=== PATIENT | male | born 1980 | race Caucasian/White ===

== ENCOUNTER 2020-05-26 09:42 | Outpatient (REF) | payer BC, SELFPAY | END 2020-05-26 09:43 | disposition home or self-care (01) | LOC: HO.LAB 09:42 | PROVIDERS: Visit Provider Internal Medicine | DX: Z20.822 Contact with and (suspected) exposure to COVID-19 (principal) | CPT/HCPCS: 36415; C9803; U0003 ==

== ENCOUNTER 2021-02-23 13:46 | Outpatient (REF) | payer BC, SELFPAY ==
[2021-02-23 14:45] LABS: Influenza A PCR NEGATIVE (Negative); Influenza B PCR NEGATIVE (Negative); Resp Syncy Virus RNA Qual PCR NEGATIVE (Negative); SARS COV2 PCR INHOUSE NEGATIVE (Negative)
== END 2021-02-23 13:47 | disposition home or self-care (01) ==
LOC: HO.LNP 13:46
PROVIDERS: Visit Provider Physician Assistant Medical
DX: Z20.822 Contact with and (suspected) exposure to COVID-19 (principal); J06.9 Acute upper respiratory infection, unspecified
CPT/HCPCS: 0241U

== ENCOUNTER 2021-05-04 10:39 | Outpatient (REF) | payer BC, SELFPAY ==
[2021-05-04 14:49] LABS: Hematocrit 47.7 % (42.0-52.0); Hemoglobin 15.1 g/dl (14.0-18.0); Mean Corpuscular HGB Conc 31.7 g/dl (31.0-36.0); Mean Corpuscular Hemoglobin 26.2 pg (27.0-33.0); Mean Corpuscular Volume 82.8 fL (80.0-98.0); Mean Platelet Volume 9.7 fL (9.4-12.4); Platelet Count 224 X10*3/uL (160-400); Red Blood Count 5.76 X10*6/uL (4.60-5.80); Red Cell Distribution Width 12.9 % (11.0-16.0); White Blood Count 7.8 X10*3/uL (4.8-10.8)
[2021-05-04 15:04] LABS: Alanine Aminotransferase 43 U/L (0-40); Albumin Level 4.3 g/dL (3.5-5.0); Alkaline Phosphatase 67 U/L (39-117); Anion Gap 11 (12-20); Aspartate Amino Transferase 23 U/L (5-37); Bilirubin Total 0.7 mg/dL (0.0-1.0); Blood Urea Nitrogen 12 mg/dL (9-16); Calcium 9.6 mg/dL (8.4-10.2); Carbon Dioxide 28 mmol/L (22-29); Chloride 108 mmol/L (96-108); Cholesterol 244 mg/dL; Estimated Glomerular Filt Rate > 60; Glucose Random 82 mg/dL (60-115); HDL Cholesterol 53 mg/dL; LDL Cholesterol Calculated 158 mg/dl; Potassium 4.7 mmol/L (3.3-5.1); Sodium 142 mmol/L (135-145); Total Protein 6.9 g/dL (6.5-8.0); Triglycerides 168 mg/dL
== END 2021-05-04 10:40 | disposition home or self-care (01) ==
LOC: HO.HMGCLDS 10:39
PROVIDERS: PCP Internal Medicine; Visit Provider Internal Medicine
DX: Z00.00 Encounter for general adult medical examination without abnormal findings (principal); D23.9 Other benign neoplasm of skin, unspecified; J31.0 Chronic rhinitis; E78.5 Hyperlipidemia, unspecified
CPT/HCPCS: 36415; 80053; 80061; 85027

== ENCOUNTER 2021-05-15 09:40 | Outpatient (REF) | payer BC, SELFPAY ==
[2021-05-15 09:55] LABS: Binax Now Covid-19 Ag Positive (Negative)
[2021-05-15 09:56] LABS: Binax Internal Control QC Valid; Binax Performed by: HO.BONILM
== END 2021-05-15 09:41 | disposition home or self-care (01) ==
LOC: HO.HMGCLDS 09:40
PROVIDERS: Visit Provider Internal Medicine
DX: J06.9 Acute upper respiratory infection, unspecified (principal); Z20.822 Contact with and (suspected) exposure to COVID-19
CPT/HCPCS: 36415

== ENCOUNTER 2022-02-28 10:47 | Emergency (ER) | payer BC, SELFPAY ==
--- NOTE | ~2022-02-28 | CT_ITS ---
EXAMINATION: CT ABDOMEN AND PELVIS WITHOUT CONTRAST CLINICAL INFORMATION: Left flank pain and hematuria COMPARISON: None TECHNIQUE: Multidetector volumetric imaging was performed from the superior aspect of the liver through the pubic symphysis. Sagittal and coronal reformatted images were obtained on the technologist's workstation. This CT examination was performed using dose optimization techniques as appropriate, variously including the following: *Automated exposure control *Adjustment of mA and/or kV according to patient size (this includes techniques or standardized protocols for targeted exams where dose is matched to indication/reason for exam; i.e. extremities or head) *Use of iterative reconstruction technique DLP: 935 mGy-cm FINDINGS: LUNG BASES: The visualized lung bases are unremarkable aside from the presence of lingular atelectasis. LIVER, GALLBLADDER, AND BILIARY TREE: The liver is normal in size, shape, and attenuation. No focal hepatic lesion or biliary ductal dilatation is present. The gallbladder is significantly contracted but otherwise unremarkable with no evidence of radiopaque gallstones, gallbladder wall thickening, or obvious pericholecystic inflammatory changes. PANCREAS: Unremarkable. SPLEEN: Unremarkable. ADRENAL GLANDS: Unremarkable. There is a tiny fatty lesion seen in the left adrenal gland measuring only a few millimeters in size of no significance. KIDNEYS AND URETERS: There is a 3 mm obstructing stone present at the left ureteropelvic junction with associated mild hydronephrosis and some minimal perinephric stranding. No left-sided renal masses are seen. No intrarenal calcifications are noted. The right kidney and ureter are totally normal. BLADDER: Unremarkable. GASTROINTESTINAL TRACT: The small and large bowel are unremarkable aside from a few scattered colonic diverticula without diverticulitis. The appendix is unremarkable. ABDOMINAL WALL: No significant hernia is appreciated. LYMPH NODES: There are some para-aortic lymph nodes present that are completely replaced with fat. No retroperitoneal lymphadenopathy VASCULAR: Unremarkable. PELVIC VISCERA: There is mild BPH. Normal-appearing seminal vesicles OSSEOUS STRUCTURES: Degenerative changes noted in the spine most marked from L4 through S1 CT/CT abdomen pelvis wo IV con IMPRESSION: 3 mm obstructing left ureteropelvic junction calculus. Fleischner guidelines were followed.
[2022-02-28 11:42] VITALS: BP 120/72; PULSE 85; RESP 16; TEMP 36.6; O2SAT 100; BMI 32.3
[2022-02-28 12:13] LABS: Appearance Urine Turbid; Color Urine Dark Yellow; Glucose Urine UA Negative (Negative); Leukocyte Esterase Urine Small (1+) (Negative); Nitrite Urine Negative (Negative); UMIC TRIGGER UACC YES; Urine Blood Large (3+) (Negative); Urine Ketones Negative (Negative); Urine Protein 100 (2+) mg/dL (Neg-Trace)
[2022-02-28 12:18] LABS: Bacteria Urine None Seen (None Seen); RBC Urine >20 /HPF (0-2); Squamous Epithelial Cell Urine 0-2 /HPF (0-2); UACC Culture Trigger YES
[2022-02-28 13:16] LABS: MANUAL DIFF FLAG NO
[2022-02-28 13:18] LABS: Basophils Percent Auto 0.5 % (0-2); Eosinophils Absolute Auto 0.3 X10*3/uL (0.0-0.4); Eosinophils Percent Auto 3.9 % (0-4); Hematocrit 48.3 % (42.0-52.0); Hemoglobin 15.4 g/dl (14.0-18.0); Imm Gran Abs Auto 0.03 X10*3/uL (0.00-0.03); Imm Gran Pct Auto 0.3 % (0.0-0.4); Lymphocytes Absolute Auto 2.1 X10*3/uL (1.2-4.9); Lymphocytes Percent Auto 24.8 % (20-40); Mean Corpuscular HGB Conc 31.9 g/dl (31.0-36.0); Mean Corpuscular Volume 81.6 fL (80.0-98.0); Mean Platelet Volume 9.1 fL (9.4-12.4); Monocytes Absolute Auto 0.7 X10*3/uL (0.1-1.2); Monocytes Percent Auto 7.9 % (2-11); Neutrophils Absolute Auto 5.4 x10*3/uL (2.0-8.3); Neutrophils Percent Auto 62.6 % (45-73); Platelet Count 202 X10*3/uL (160-400); Red Blood Count 5.92 X10*6/uL (4.60-5.80); Red Cell Distribution Width 12.9 % (11.0-16.0); White Blood Count 8.6 X10*3/uL (4.8-10.8)
[2022-02-28 13:33] LABS: Anion Gap 14 (12-20); Blood Urea Nitrogen 19 mg/dL (9-16); Calcium 9.7 mg/dL (8.4-10.2); Carbon Dioxide 26 mmol/L (22-29); Chloride 106 mmol/L (96-108); Creatinine Clr Calc Pharmacy 136.5; Estimated Glomerular Filt Rate > 60; Glucose Random 88 mg/dL (60-115); Potassium 4.5 mmol/L (3.3-5.1); Sodium 141 mmol/L (135-145)
--- NOTE | 2022-02-28 18:07 | ED_ITS ---
HPI - Abdominal Pain General Chief Complaint: Abdominal Pain Stated Complaint: kidney stones Time Seen by Provider: 02/28/22 17:30 Source: patient Mode of arrival: ambulatory Limitations: no limitations History of Present Illness HPI narrative: Patient is a 41-year-old male who presents to the emergency department for evaluation of left flank pain. Onset was this morning. Pain has been intermittent. It is described as aching, stabbing pains. Reports that it feels similar to kidney stones that he has had in the past, which he was able to pass on his own. Denies fevers, chills, chest pain, shortness of breath, nausea, vomiting, dysuria, urinary frequency, hematuria. He has not yet taken any medications for this today. Related Data Previous Rx's Medication Instructions Recorded fluticasone propionate 50 2 spray intranasal DAILY #16 grams 03/01/21 mcg/actuation nasal spray,suspension (Flonase Allergy Relief) azelastine-fluticasone 137 mcg-50 1 spray intranasal BID #23 grams 06/15/21 mcg/spray nasal spray meloxicam 15 mg tablet 15 mg PO DAILY #10 tabs 11/03/21 naproxen 500 mg tablet 500 mg PO BID pain #14 tabs 02/28/22 prednisone 20 mg tablet 40 mg PO DAILY 5 days #10 tabs 02/28/22 tamsulosin 0.4 mg capsule 0.4 mg PO BEDTIME #10 caps 02/28/22 Allergies Allergy/AdvReac Type Severity Reaction Status Date / Time No Known Allergies Allergy Verified 02/28/22 11:44 Review of Systems Review of Systems Constitutional : No Weight loss, No Fever, No Chills ENT/Mouth :? No sore throat, No Rhinorrhea Eyes: No Swelling, No Redness Cardiovascular : No Chest Pain, No SOB, No Edema Respiratory : No Cough, No Sputum, No Wheezing Gastrointestinal : No Nausea, no Vomiting, no Diarrhea, positive abdominal pain, No Hematochezia, No Melena Genitourinary : No Dysuria, No Urinary Frequency, No Hematuria, No Urgency? Musculoskeletal : No joint pain, No Myalgias, No Joint Swelling Skin : No Skin Lesions, No rash Neuro : No Weakness, No Numbness, No Dizziness, No Headache Psych : No Anxiety/Panic, No Depression Heme/Lymph: No Bruising, No Lymphadenopathy Endocrine : No Polyuria, No Polydipsia Yes all other systems are reviewed and are negative [facility] Past Medical History Attestation statement: The following information was validated with the patient. Source: old records reviewed Medical History Annual physical exam Chronic rhinitis Dysplastic nevi History of herniated intervertebral disc Hyperlipidemia Nephrolithiasis Surgical History Hx of lumbar discectomy Hx of nasal polypectomy Hx of vasectomy Family History Family History Father Diabetes Hypertension Heart attack Mother Hypertension Social History Social History Housing: House Patient Tobacco Use Status: Never used Tobacco e-Cigarette/Vaping Use: Never Used Advance Directives: No Advance Directives Information Provided: No Current occupational status: employed Physical Exam ED Vital Signs: Vital Signs - 24 hr 02/28/22 11:42 Temperature 98 F Pulse Rate 85 Respiratory Rate 16 Blood Pressure 120/72 Pulse Oximetry 100 Oxygen Delivery Method Room Air BMI result Body Mass Index 32.3 Vital signs have been reviewed as normal and appeared to be correct. Blood pressure normal.? Heart rate normal.? Respiration rate normal. Temperature normal.? Oxygen saturation normal. Appearance: Alert.?Oriented to person, place and time. No acute distress.?Normal affect. Eyes: Pupils equal, round and reactive to light.? ENT: Pharynx normal.?? Neck: Normal inspection.? Neck supple.?? CVS: Heart sounds normal. Normal heart rate and rhythm.? Pulses normal.?? Respiratory: No respiratory distress.? Lung sounds clear to auscultation bilaterally?? Abdomen: Soft and non-tender. Normoactive bowel sounds. Positive left CVA tenderness Skin: Skin warm and dry.? Normal skin color.? Extremities: No lower extremity edema.? Neuro: Moves all extremities spontaneously. Sensation intact bilaterally. No focal neuro deficits. Ambulates with normal steady gait. Course Course Course Narrative: Patient is a 41-year-old male with a past medical history of nephrolithiasis, hyperlipidemia, rhinitis who presents emergency department for evaluation of left flank pain. Upon examination he is overall well-appearing. Vital signs are stable. He is afebrile without tachycardia. Abdominal exam is benign. He does have left CVA tenderness, concerning for nephrolithiasis. Labs obtained from triage reveal an overall unremarkable CBC and BMP. Urinalysis with large amount of blood/RBCs, does not appear consistent with urinary tract infection. Will obtain CT of the abdomen to evaluate for nephrolithiasis/hydronephrosis. Patient received morphine IV, ketorolac IV, and ondansetron IV. Disposition pending results. Reevaluation(s) Reevaluation #1: CT reveals a 3 mm obstructing left ureteropelvic junction calculus with mild hydronephrosis and some minimal perinephric stranding. Spoke with Urology test preparation tutor, Dr. Wallace, advises unlikely to be obstructing given the size. Plan of care for patient to be discharged home, outpatient follow-up with Urology, will be sent with new prescriptions for NSAID, tamsulosin, prednisone. Reviewed findings with patient. Discussed worrisome signs and symptoms to return back to the emergency department for. All questions were answered. Patient was discharged home in stable condition. Time: 19:22 MDM - Abdominal Pain Medical Records Attestation: I reviewed the patient's medical records. Lab Data Attestation: I reviewed the patient's lab results. Result diagrams: 02/28/22 13:11 02/28/22 13:11 Labs: Lab Results 02/28/22 02/28/22 02/28/22 Range/Units 11:50 13:11 13:11 WBC 8.6 (4.8-10.8) X10*3/uL RBC 5.92 H (4.60-5.80) X10*6/uL Hgb 15.4 (14.0-18.0) g/dl Hct 48.3 (42.0-52.0) % MCV 81.6 (80.0-98.0) fL MCH 26.0 L (27.0-33.0) pg MCHC 31.9 (31.0-36.0) g/dl RDW 12.9 (11.0-16.0) % Plt Count 202 (160-400) X10*3/uL MPV 9.1 L (9.4-12.4) fL Immature Gran % (Auto) 0.3 (0.0-0.4) % Neut % (Auto) 62.6 (45-73) % Lymph % (Auto) 24.8 (20-40) % [place] % (Auto) 7.9 (2-11) % Eos % (Auto) 3.9 (0-4) % Baso % (Auto) 0.5 (0-2) % Lymph # (Auto) 2.1 (1.2-4.9) X10*3/uL [place] # (Auto) 0.7 (0.1-1.2) X10*3/uL Eos # (Auto) 0.3 (0.0-0.4) X10*3/uL Baso # (Auto) 0.0 (0.0-0.2) X10*3/uL Abs Immat Gran (auto) 0.03 (0.00-0.03) X10*3/uL Absolute Neuts (auto) 5.4 (2.0-8.3) x10*3/uL Absolute Nucleated RBC 0.000 (0.0-0.012) X10*3/uL Nucleated RBC % (auto) 0.0 (0.0-0.2) /100WBC Sodium 141 (135-145) mmol/L Potassium 4.5 (3.3-5.1) mmol/L Chloride 106 (96-108) mmol/L Carbon Dioxide 26 (22-29) mmol/L Anion Gap 14 (12-20) BUN 19 H D (9-16) mg/dL Creatinine 0.94 (0.5-1.4) mg/dL Estim Creat Clear Calc 136.5 Estimated GFR > 60 Random Glucose 88 (60-115) mg/dL Calcium 9.7 (8.4-10.2) mg/dL Total Bilirubin 0.4 (0.0-1.0) mg/dL Direct Bilirubin 0.2 (0.0-0.5) mg/dL AST 26 (5-37) U/L ALT 46 H (0-40) U/L Alkaline Phosphatase 60 (39-117) U/L Total Protein 6.9 (6.5-8.0) g/dL Albumin 4.4 (3.5-5.0) g/dL Lipase 14 (8-78) U/L Urine Color Dark Yellow Urine Appearance Turbid Urine pH 6.0 (5.0-9.0) Ur Specific [place] 1.020 (1.005-1.025) Urine Protein 100 (2+) H (Neg-Trace) mg/dL Urine Glucose (UA) Negative (Negative) mg/dL Urine Ketones Negative (Negative) mg/dL Urine Blood Large (3+) H (Negative) Urine Nitrite Negative (Negative) Ur Leukocyte Esterase Small (1+) H (Negative) Urine RBC >20 H (0-2) /HPF Urine WBC 6-10 H (0-5) /HPF Ur Squamous Epith Cells 0-2 (0-2) /HPF Urine Bacteria None Seen (None Seen) Hyaline Casts 3-5 (0-2) /LPF Imaging Data CT scan - abdomen: Radiologist's impression: CT/CT abdomen pelvis wo IV con IMPRESSION: 3 mm obstructing left ureteropelvic junction calculus. ? Discharge Plan Discharge Clinical Impression: Ureteropelvic junction calculus, Hydronephrosis Patient Disposition: Home, Self-Care Instructions: Renal Colic (ED), How to Strain Your Urine (ED), Ureteral Stones (ED) Additional Instructions: As we discussed, the kidney stone that is present is small enough that you should be able to pass it on your own. Strain all urine as instructed, collect stone if it is seen. You have been given new prescriptions that were sent to the pharmacy take naproxen twice daily with food. Do not take additional [id number] medications such as ibuprofen, Aleve, Motrin, Advil, aspirin while taking this medication. Take tamsulosin daily at bedtime Take prednisone daily in the morning with food Contact Urology, Dr. Wallace, to arrange for a follow-up visit. Return to emergency department with any new or worsening symptoms or concerns. Prescriptions: New prednisone 20 mg tablet 40 mg PO DAILY 5 Days Qty: 10 0RF naproxen 500 mg tablet 500 mg PO BID Qty: 14 0RF tamsulosin 0.4 mg capsule 0.4 mg PO BEDTIME Qty: 10 0RF No Action fluticasone propionate [Flonase Allergy Relief] 50 mcg/actuation spray,suspension 2 spray intranasal DAILY Qty: 16 0RF Rx Instructions: administer into each nostril azelastine-fluticasone 137-50 mcg/spray spray,non-aerosol 1 spray intranasal BID Qty: 23 1RF Rx Instructions: administer into each nostril meloxicam 15 mg tablet 15 mg PO DAILY Qty: 10 0RF Referrals: Favian Wallace MD [Physician] - Interventions: ED Discharge Assessment Last Done: 02/28/22 21:10 Discharge Date/Time: 02/28/22 21:11
[2022-02-28] MEDS: Ketorolac Tromethamine 30 MG/ML VIAL IVPUSH (18:32)
[2022-02-28] MEDS: Morphine Sulfate 4 MG/ML CARTRIDGE IVPUSH (18:32)
[2022-02-28] MEDS: ondansetron HCL 4 MG/2 ML VIAL IVPUSH (18:33)
[2022-02-28 18:54] LABS: Alanine Aminotransferase 46 U/L (0-40); Albumin Level 4.4 g/dL (3.5-5.0); Alkaline Phosphatase 60 U/L (39-117); Aspartate Amino Transferase 26 U/L (5-37); Bilirubin Direct 0.2 mg/dL (0.0-0.5); Bilirubin Total 0.4 mg/dL (0.0-1.0); Lipase 14 U/L (8-78); Total Protein 6.9 g/dL (6.5-8.0)
== END 2022-02-28 21:11 | disposition home or self-care (01) ==
PROVIDERS: Nurse Practitioner Family; Emergency Provider Emergency Medicine; PCP Internal Medicine
DX: N13.0 Hydronephrosis with ureteropelvic junction obstruction (principal); R10.9 Unspecified abdominal pain; R31.9 Hematuria, unspecified; Z79.899 Other long term (current) drug therapy
CPT/HCPCS: 36415; 74176; 80048; 80076; 81001; 81003; 83690; 85025; 87086; 96374; 96375; 99283; 99284; J1885; J2270; J2405

== ENCOUNTER 2022-11-17 08:31 | Outpatient (REF) | payer BC, SELFPAY ==
[2022-11-17 11:11] LABS: MANUAL DIFF FLAG NO
[2022-11-17 11:18] LABS: Basophils Percent Auto 0.7 % (0-2); Eosinophils Absolute Auto 0.4 X10*3/uL (0.0-0.4); Eosinophils Percent Auto 6.7 % (0-4); Hematocrit 46.6 % (42.0-52.0); Imm Gran Abs Auto 0.02 X10*3/uL (0.00-0.03); Imm Gran Pct Auto 0.4 % (0.0-0.4); Lymphocytes Absolute Auto 2.1 X10*3/uL (1.2-4.9); Lymphocytes Percent Auto 38.2 % (20-40); Mean Corpuscular HGB Conc 32.2 g/dl (31.0-36.0); Mean Corpuscular Hemoglobin 26.5 pg (27.0-33.0); Mean Corpuscular Volume 82.3 fL (80.0-98.0); Mean Platelet Volume 10.1 fL (9.4-12.4); Monocytes Absolute Auto 0.4 X10*3/uL (0.1-1.2); Monocytes Percent Auto 7.8 % (2-11); Neutrophils Absolute Auto 2.6 x10*3/uL (2.0-8.3); Neutrophils Percent Auto 46.2 % (45-73); Platelet Count 224 X10*3/uL (160-400); Red Blood Count 5.66 X10*6/uL (4.60-5.80); Red Cell Distribution Width 13.2 % (11.0-16.0); White Blood Count 5.5 X10*3/uL (4.8-10.8)
[2022-11-17 11:31] LABS: Rheumatoid Factor < 13.0 IU/mL (<15.0)
[2022-11-17 11:36] LABS: Alanine Aminotransferase 41 U/L (0-40); Albumin Level 4.1 g/dL (3.5-5.0); Alkaline Phosphatase 55 U/L (39-117); Anion Gap 13 (12-20); Aspartate Amino Transferase 25 U/L (5-37); Bilirubin Total 0.6 mg/dL (0.0-1.0); Blood Urea Nitrogen 13 mg/dL (9-16); Calcium 9.4 mg/dL (8.4-10.2); Carbon Dioxide 26 mmol/L (22-29); Chloride 107 mmol/L (96-108); Cholesterol 231 mg/dL; Estimated Glomerular Filt Rate > 60; Glucose Fasting 97 mg/dL (60-99); HDL Cholesterol 53 mg/dL; LDL Cholesterol Calculated 154 mg/dl; Potassium 4.3 mmol/L (3.3-5.1); Sodium 142 mmol/L (135-145); Total Protein 6.5 g/dL (6.5-8.0); Triglycerides 122 mg/dL; Uric Acid 7.3 mg/dL (3.4-7.0)
[2022-11-17 11:52] LABS: TSH reflex Free T4 1.11 uIU/mL (0.32-4.0)
[2022-11-19 17:44] LABS: Lyme Abs Screen <0.90 index
[2022-11-20 15:43] LABS: Anti Nuclear Antibody Screen NEGATIVE (NEGATIVE)
== END 2022-11-17 08:32 | disposition home or self-care (01) ==
LOC: HO.HMGCLDS 08:31
PROVIDERS: PCP Internal Medicine; Visit Provider Internal Medicine
DX: Z00.00 Encounter for general adult medical examination without abnormal findings (principal); N20.0 Calculus of kidney; M25.50 Pain in unspecified joint; E78.5 Hyperlipidemia, unspecified
CPT/HCPCS: 36415; 80053; 80061; 84443; 84550; 85025; 86038; 86140; 86431; 86617; 86618

== ENCOUNTER 2023-05-17 10:26 | Outpatient (AMB) | payer BC, SELFPAY ==
[2023-05-17 10:27] VITALS: BP 104/66; PULSE 97; O2SAT 96; BMI 32.8
--- NOTE | 2023-05-17 10:27 | MHC.PC.OV ---
Vital Signs 05/17/23 10:27 Height 6 ft 1 in Weight 249 lb BMI 32.8 BP 104/66 Blood Pressure Location Lt brachial Position Sitting Pulse 97 Pulse Source Pulse Oximeter Pulse Oximetry (%) 96 Oxygen Delivery Method Room Air Intake Visit Reasons: PE Intake Note: Pt is here today for PE. Allergies No Known Allergies Allergy (Verified 05/17/23 10:28) Medication List - Last Reconciled 05/17/23 by Carmelina Lerner MD fluticasone propionate 50 mcg/actuation (Flonase Allergy Relief) 2 sprays intranasal DAILY Tobacco use date assessed: 05/17/23 Dental Screening Dental Screen Date: 05/17/23 Did you have a dental visit in the last 12 months?: Yes Did you have a dental problem in the last 6 months where you did not have access to dental care?: No Was dental information given to patient?: Patient has dentist HPI PE HPI Details Pt presents for PE. Pt had R fibula/tibia surgery after traumatic fracture, healed well and f/u with ortho in Jun. [facility] Medical History (Updated 05/17/23 @ 11:09 by Carmelina Lerner MD) Plantar fasciitis Nephrolithiasis Hyperlipidemia Dysplastic nevi Chronic rhinitis Annual physical exam History of herniated intervertebral disc Surgical History Hx of nasal polypectomy Hx of vasectomy Hx of lumbar discectomy Family History Father Diabetes Hypertension Heart attack Mother Hypertension Social History Housing: House Patient Tobacco Use Status: Never used Tobacco e-Cigarette/Vaping Use: Never Used Current occupational status: employed Cognitive needs: No Hearing needs: No Vision needs: No Questionnaire PHQ-9 Over the last 2 weeks, how often have you been bothered by any of the following problems? 1. Little interest or pleasure in doing things: not at all 2. Feeling down, depressed, or hopeless: not at all 3. Trouble falling or staying asleep, or sleeping too much: not at all 4. Feeling tired or having little energy: not at all 5. Poor appetite or overeating: not at all 6. Feeling bad about yourself - or that you are a failure or have let yourself or your family down: not at all 7. Trouble concentrating on things, such as reading the newspaper or watching television: not at all 8. Moving or speaking so slowly that other people could have noticed. Or the opposite - being so fidgety or restless that you have been moving around a lot more than usual: not at all 9. Thoughts that you would be better off or of hurting yourself in some way: not at all Total score: 0 Depression Screening Interpretation: Negative Depression Screening Done: Yes Source: Developed by Drs. Homero Armendariz, Syl Baugh, Ramesh Castle and colleagues, with an educational hans from [employer]. Thrive Questionnaire Date Thrive assessed: 05/17/23 I am a: Patient What is your living situation today?: I have a steady place to live Within the past 12 months, did the food you bought not last and you didn't have the money to get more?: Never true Within the past 12 months, did you worry whether your food would run out before you got money to buy more?: Never true Do you have trouble paying for medicines?: No Do you have trouble getting transportation to medical appointments?: No Do you have trouble paying your heating and electricity bill?: No Do you have trouble taking care of your child, family member or friend?: No Do you have trouble with day-to-day activities such as bathing, preparing meals, shopping, managing finances, etc.?: No Are you currently unemployed and looking for a job?: No Are you interested in more education?: No Please select the resources that you would like help with: None Currently or been in a relationship where the following occur: no concerns reported AUDIT C Alcohol Use Questionnaire (AUDIT-C) 1. How often do you have a drink containing alcohol?: Monthly or less 2. How many drinks containing alcohol do you have on a typical day when you are drinking?: 1 or 2 3. How often do you have six or more drinks on one occasion?: Never Total Score: 1 RUDDY-7 AMB Questionnaire RUDDY-7 Date RUDDY - 7 assessed: 05/17/23 Feeling nervous, anxious, or on edge: 0 = Not at all Not being able to stop or control worryin = Not at all Worrying too much about different things: 0 = Not at all Trouble relaxin = Not at all Being so restless that it is hard to sit still: 0 = Not at all Becoming easily annoyed or irritable: 1 = Several days Feeling afraid as if something awful might happen: 0 = Not at all Total RUDDY-7 score (0-4 normal; 5-9 mild; 10-14 moderate; 15-21 severe): 1 Source: Developed by Drs. Homero Armendariz, Syl Baugh, Ramesh Castle and colleagues, with an educational hans from [employer]. Review of Systems Const All systems reviewed & are unremarkable except as noted in HPI and below Reports no additional complaints Eyes Reports no additional complaints ENT Reports no additional complaints Card Reports no additional complaints Resp Reports no additional complaints GI Reports no additional complaints Reports no additional complaints Physical exam (Primary Care) Vital Signs: Last Vital Signs Pulse 97 05/17/23 10:27 BP 104/66 05/17/23 10:27 Pulse Ox 79 L 05/17/23 10:27 Oxygen Delivery Method Room Air 05/17/23 10:27 BMI result Body Mass Index 32.8 Tobacco/Smoking Status: Tobacco use Status Tobacco use date assessed 05/17/23 05/17/23 10:33 Patient Tobacco Use Status Never used Tobacco 05/17/23 10:33 e-Cigarette/Vaping Use Never Used 05/17/23 10:30 PHQ-9: PHQ-9 Score PHQ-9: Total score 0 05/17/23 10:33 Depression Screening Interpretation: Negative Thrive Assessment: Date of Thrive Assessment Date Thrive assessed 05/17/23 05/17/23 10:33 Currently or been in a relationship where the following occur: no concerns reported Const General: no acute distress HENMT Head: Yes normal to inspection Ears: hearing grossly normal bilaterally Face and sinus: Yes normal facial exam Mouth: Normal oral and palatal mucosa present Throat: Yes posterior oropharynx normal Eyes General: appearance normal, both eyes and all related structures Neck Neck: Yes no lymphadenopathy and Yes supple Resp Effort & Inspection: normal respiratory effort Auscultation: clear to auscultation bilaterally Cardio Rhythm: regular rhythm Heart sounds: S1 normal heart sound present and S2 normal heart sound present GI Inspection: Yes normal to inspection Palpation (GI): Soft to palpation Percussion: Yes normal to percussion Auscultation: normal bowel sounds Extrem Other: Right lower extremity healed incision, slightly decreased range of motion in the right ankle General: Yes no clubbing, cyanosis or edema Assessment and Plan Assessment & Plan (1) Hyperlipidemia: Code(s): E78.5 - Hyperlipidemia, unspecified Plan: Low-cholesterol diet increase physical activity discussed with the patient he will return in 1 month for fasting blood work (2) Annual physical exam: Code(s): Z00.00 - Encounter for general adult medical examination without abnormal findings Plan: Well-balanced diet regular physical activity discussed with the patient. (3) Gout: Code(s): M10.9 - Gout, unspecified Plan: Check uric acid (4) History of fracture of lower extremity: Comment: R tibia/fibula 04/27 s/p surgery and hardware , f/u [facility] Code(s): Z87.81 - Personal history of (healed) traumatic fracture Orders: Orders Uric Acid 1 Month M10.9 - Gout, unspecified Comprehensive [place]. Panel Fast 1 Month E78.5 - Hyperlipidemia, unspecified, M10.9 - Gout, unspecified, Z00.00 - Encounter for general adult medical examination without abnormal findings Complete Blood Count Auto Diff 1 Month E78.5 - Hyperlipidemia, unspecified, M10.9 - Gout, unspecified, Z00.00 - Encounter for general adult medical examination without abnormal findings Lipid Panel 1 Month E78.5 - Hyperlipidemia, unspecified, M10.9 - Gout, unspecified, Z00.00 - Encounter for general adult medical examination without abnormal findings Medications: Discontinued fluticasone propionate 50 mcg/actuation (Flonase Allergy Relief) administer into each nostril Discontinued Reason: Duplicate 2 sprays intranasal DAILY 16 grams 0RF Coding Level of Care Code Est Pt Prev Care 40-64y(11841) Diagnoses Hyperlipidemia E78.5 Annual physical exam Z00.00 Gout M10.9 History of fracture of lower extremity Z87.81
== END 2023-05-17 11:14 | disposition home or self-care (01) ==
PROVIDERS: PCP Internal Medicine; Visit Provider Internal Medicine
DX: E78.5 Hyperlipidemia, unspecified (principal); Z00.00 Encounter for general adult medical examination without abnormal findings; M10.9 Gout, unspecified; Z87.81 Personal history of (healed) traumatic fracture
CPT/HCPCS: 99396

== ENCOUNTER 2025-03-02 14:43 | Outpatient (REF) | payer BC, SELFPAY ==
--- NOTE | ~2025-03-02 | XR_ITS ---
EXAMINATION: XR SHOULDER, LEFT CLINICAL INFORMATION: Left shoulder pain. COMPARISON: None available. TECHNIQUE: AP external rotation, Grashey, scapular Y, and axillary views of the left shoulder. FINDINGS: There is no AC joint separation or shoulder dislocation. There are no degenerative changes. Chronic corticated ossification is present superior to the glenoid, possibly at the biceps labral junction. XR/XR shoulder LT min 2V IMPRESSION: No acute abnormality. Nonspecific chronic appearing somewhat linear ossification is visible in the soft tissues cephalad to glenoid. Electronically signed by: Daniel Banerjee MD 03/02/2025 03:25 PM EDT
[2025-03-02 16:28] LABS: MANUAL DIFF FLAG NO
[2025-03-02 16:52] LABS: Hematocrit 46.3 % (42.0-52.0); Hemoglobin 14.8 g/dl (14.0-18.0); Imm Gran Abs Auto 0.02 X10*3/uL (0.00-0.03); Imm Gran Pct Auto 0.2 % (0.0-0.4); Lymphocytes Absolute Auto 2.5 X10*3/uL (1.2-4.9); Mean Corpuscular HGB Conc 32.0 g/dl (31.0-36.0); Mean Corpuscular Hemoglobin 26.0 pg (27.0-33.0); Mean Corpuscular Volume 81.2 fL (80.0-98.0); NRBC Abs Auto 0.000 X10*3/uL (0.0-0.012); NRBC Pct Auto 0.0 /100WBC (0.0-0.2); Platelet Count 241 X10*3/uL (160-400); Red Blood Count 5.70 X10*6/uL (4.60-5.80); White Blood Count 8.6 X10*3/uL (4.8-10.8)
[2025-03-02 23:35] LABS: Alanine Aminotransferase 46 U/L (0-40); Albumin Level 4.7 g/dL (3.5-5.0); Alkaline Phosphatase 61 U/L (39-117); Anion Gap 15 (12-20); Aspartate Amino Transferase 32 U/L (5-37); Blood Urea Nitrogen 20 mg/dL (9-16); Calcium 9.5 mg/dL (8.4-10.2); Carbon Dioxide 22 mmol/L (22-29); Chloride 111 mmol/L (96-108); Estimated Glomerular Filt Rate > 60; Potassium 4.1 mmol/L (3.3-5.1); Sodium 144 mmol/L (135-145); Total Protein 7.0 g/dL (6.5-8.0)
== END 2025-03-02 14:44 | disposition home or self-care (01) ==
LOC: HO.HMGCX 14:43
PROVIDERS: PCP Internal Medicine; Visit Provider Internal Medicine
DX: M25.512 Pain in left shoulder (principal); R19.7 Diarrhea, unspecified
CPT/HCPCS: 36415; 73030; 80053; 85025; 96127

== ENCOUNTER 2025-03-02 14:43 | Outpatient (AMB) | payer BC, SELFPAY ==
[2025-03-02 14:44] VITALS: BP 110/78; PULSE 85; RESP 17; TEMP 36.8; O2SAT 96; BMI 31.9
--- NOTE | 2025-03-02 14:44 | A.OFFPC_ITS ---
Vital Signs 03/02/25 14:44 Height 6 ft 1 in Weight 242 lb BMI 31.9 BP 110/78 Blood Pressure Location Rt brachial Position Sitting Respiration 17 Pulse 85 Pulse Source Pulse Oximeter Temp 98.2 F Temp Source Oral Pulse Oximetry (%) 96 Oxygen Delivery Method Room Air Intake Visit Reasons: Left shoulder pain Intake Note: Pt is here today for a sick visit. Pt c/o L shoulder pain for 3 weeks. Pt also c/o diarrhea for couple of weeks now. Allergies No Known Allergies Allergy (Verified 03/02/25 14:48) Medication List - Last Reconciled 03/02/25 by Carmelina Lerner MD No Known Home Meds Tobacco use date assessed: 03/02/25 Dental Screening Dental Screen Date: 03/02/25 Did you have a dental visit in the last 12 months?: Yes Did you have a dental problem in the last 6 months where you did not have access to dental care?: No Was dental information given to patient?: Patient has dentist HPI Left shoulder pain HPI Details Pt c/o diarrhea for 2 weeks after eating eggs, intermittent watery, small amounts after eating. Patient denies abdominal pain, nausea vomiting fever chills hematochezia melena. Pt complains of L shoulder pain radiating to left elbow worse when trying to use:reach overhead or lift objects for 4 weeks, started after working in the garden carrying heavy stones. Patient denies any weakness or numbness in the left upper extremity or joint swelling. [facility] Medical History (Updated 03/02/25 @ 15:00 by Carmelina Lerner MD) Plantar fasciitis Nephrolithiasis Hyperlipidemia Dysplastic nevi Chronic rhinitis Annual physical exam History of herniated intervertebral disc Surgical History Hx of nasal polypectomy Hx of vasectomy Hx of lumbar discectomy Family History Father Diabetes Hypertension Heart attack Mother Hypertension Social History Housing: House Patient Tobacco Use Status: Never used Tobacco e-Cigarette/Vaping Use: Never Used service: No Current occupational status: employed Cognitive needs: No Hearing needs: No Vision needs: No Questionnaire PHQ-9 Over the last 2 weeks, how often have you been bothered by any of the following problems? 1. Little interest or pleasure in doing things: not at all 2. Feeling down, depressed, or hopeless: not at all 3. Trouble falling or staying asleep, or sleeping too much: not at all 4. Feeling tired or having little energy: not at all 5. Poor appetite or overeating: not at all 6. Feeling bad about yourself - or that you are a failure or have let yourself or your family down: not at all 7. Trouble concentrating on things, such as reading the newspaper or watching television: not at all 8. Moving or speaking so slowly that other people could have noticed. Or the opposite - being so fidgety or restless that you have been moving around a lot more than usual: not at all 9. Thoughts that you would be better off or of hurting yourself in some way: not at all Total score: 0 Depression Screening Interpretation: Negative Depression Screening Done: Yes Source: Developed by Drs. Homero Armendariz, Syl Baugh, Ramesh Castle and colleagues, with an educational hans from [employer]. Thrive Questionnaire Date Thrive assessed: 03/02/25 I am a: Patient What is your living situation today?: I choose not to answer this question Within the past 12 months, did the food you bought not last and you didn't have the money to get more?: I choose not to answer this question Within the past 12 months, did you worry whether your food would run out before you got money to buy more?: I choose not to answer this question Do you have trouble paying for medicines?: I choose not to answer this question Do you have trouble getting transportation to medical appointments?: I choose not to answer this question Do you have trouble paying your heating and electricity bill?: I choose not to answer this question Do you have trouble taking care of your child, family member or friend?: I choose not to answer this question Do you have trouble with day-to-day activities such as bathing, preparing meals, shopping, managing finances, etc.?: I choose not to answer this question Are you currently unemployed and looking for a job?: I choose not to answer this question Are you interested in more education?: I choose not to answer this question THRIVE Score: 0 AUDIT C Alcohol Use Questionnaire (AUDIT-C) 1. How often do you have a drink containing alcohol?: Monthly or less 2. How many drinks containing alcohol do you have on a typical day when you are drinking?: 1 or 2 3. How often do you have six or more drinks on one occasion?: Never Total Score: 1 RUDDY-7 AMB Questionnaire RUDDY-7 Date RUDDY - 7 assessed: 03/02/25 Feeling nervous, anxious, or on edge: 0 = Not at all Not being able to stop or control worryin = Not at all Worrying too much about different things: 0 = Not at all Trouble relaxin = Not at all Being so restless that it is hard to sit still: 0 = Not at all Becoming easily annoyed or irritable: 0 = Not at all Feeling afraid as if something awful might happen: 0 = Not at all Total RUDDY-7 score (0-4 normal; 5-9 mild; 10-14 moderate; 15-21 severe): 0 Source: Developed by Drs. Homero Armendariz, Syl Baugh, Ramesh Castle and colleagues, with an educational hans from [employer]. Review of Systems Const All systems reviewed & are unremarkable except as noted in HPI and below Eyes Reports no additional complaints Card Reports no additional complaints Resp Reports no additional complaints GI Reports no additional complaints Physical exam (Primary Care) Vital Signs: Last Vital Signs Temp 98.2 F 03/02/25 14:44 Pulse 85 03/02/25 14:44 Resp 17 03/02/25 14:44 BP 110/78 03/02/25 14:44 Pulse Ox 96 03/02/25 14:44 Oxygen Delivery Method Room Air 03/02/25 14:44 BMI result Body Mass Index 31.9 Tobacco/Smoking Status: Tobacco use Status Tobacco use date assessed 05/17/23 11/30/24 13:06 Patient Tobacco Use Status Never used Tobacco 11/30/24 13:06 e-Cigarette/Vaping Use Never Used 11/30/24 13:06 Depression Screening Interpretation: Negative Thrive Assessment: Date of Thrive Assessment Date Thrive assessed 05/17/23 11/30/24 13:06 Const General: no acute distress HENMT Face and sinus: Yes normal facial exam Resp Effort & Inspection: normal respiratory effort Auscultation: clear to auscultation bilaterally Cardio Rhythm: regular rhythm Heart sounds: S1 normal heart sound present and S2 normal heart sound present GI Inspection: Yes normal to inspection Palpation (GI): Soft to palpation Percussion: Yes normal to percussion Auscultation: normal bowel sounds Extrem Other: L shoulder no joint tenderness or deformity slightly decreased range of motion, pain with internal and external rotation, Coding Level of Care Code Est Pt Level 4 (47372) Diagnoses Diarrhea R19.7 Shoulder pain, left M25.512 Assessment & Plan Assessment & Plan (1) Diarrhea: Code(s): R19.7 - Diarrhea, unspecified Category: Medical Plan: For persistent diarrhea obtain stool studies, CBC and comprehensive panel. Supportive care including avoidance of fresh fruits and vegetables and dairy for 1 week (2) Shoulder pain, left: Code(s): M25.512 - Pain in left shoulder Category: Medical Plan: For persistent left shoulder pain obtain x-ray of the shoulder, meloxicam 15 mg daily for 2 weeks as prescribed and patient will be referred to physical therapy. if there is no improvement MRI of the shoulder will be obtained . Orders: Orders GI Panel Today R19.7 - Diarrhea, unspecified Comprehensive Met. Panel Today R19.7 - Diarrhea, unspecified Complete Blood Count Auto Diff Today R19.7 - Diarrhea, unspecified XR shoulder LT min 2V Today R19.7 - Diarrhea, unspecified PT Evaluation and Treatment Today M25.512 - Pain in left shoulder Medications: New meloxicam 15 mg PO DAILY 14 tabs 0RF
--- OUTSIDE RECORDS SUMMARY | 2025-03-02 19:10 | XMS_ITS | Patient Health Record ---
Author Organization [facility] Address [address] [facility] [place] [address] Care Team Providers Care Career Coordinator Name Role Phone Carmelina Lerner MD Primary Care Provider Unavaila fredi Black, Chuyita Unavailable [phone] Allergies No Known Allergies Reason For Referral No Information Medications Medication SIG (Take, Route, Frequency, Duration) Notes Start Date End Date Status Feldene 20 MG 1 capsule with food Orally Once a day; Duration: 30 day(s) 06/06/2022 Active Ciclopirox Olamine 0.77 % 1 application Externally Once a day; Duration: 30 days 06/06/2022 Active Social History Tobacco Use: Social History Observation Description Date Details (start date - stop date) Never Smoker NA - NA Tobacco Use/Smoking Question Answer Notes Are you a: nonsmoker Additional Findings: Tobacco Non-User Aggressive non-smoker Alcohol Screen Question Answer Notes Did you have a drink contain ing alcohol in the past year? Yes How often did you have a dri nk containing alcohol in the past year? Monthly or less (1 point) How many drinks did you have on a typical day when you were drinking in the past year? 1 or 2 drinks (0 point) How often did you have 6 or more drinks on one occasion in the past year? 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.19) Active confirmed Problem Neuralgia - Neuritis (729.2) Active confirmed Problem Hammer toe (540904483) Hammer toe (735.4) Active confirmed Problem Pain in limb (04120992) Pain in Limb (729.5) Active confirmed Plan Of Treatment Pending Test Test Name Order Date X ray : Foot, left 3V 02/04/2012 X ray : Foot, right 3V 02/04/2012 [id number] Destruction, -02/04/2012 [id number] Destruction, 05-1903/03/2012 [id number] Destruction, -04/14/2012 Insurance Providers Payer Name Payer Address Payer Phone Subscriber Number Group Number Insured Name Patient Relationship to Insured Coverage Start Date Coverage End Date [facility] All Others [address] [place] [address] [phone] [id number] Remberto Domínguez Self - patient is the insured Medical (General) History Medical History History ICD Code Numbness Kidney stones back, hip, knee pain Surgical History Surgery Date(Month/Year) nose 2009 back surgery 2016
--- OUTSIDE RECORDS SUMMARY | 2025-03-02 19:10 | XMS_ITS | Clinical Summary ---
Author Organization [address] Address [address] [place] [address] Phone Care Team Providers Care Immigration Judge Name Role Phone Carmelina Lerner MD Primary Care Provider [phone] Allergies No known active allergies Medications No known medications Encounters Date Type Department Care Team Description 02/03/2025 2:45 PM EDT Office Visit Bariatric Surgery [address] [address] Magdalene Petersen MD Hx of atypical nevus (Primary Dx) 01/19/2025 3:15 PM EDT Procedure visit [address] [address] Magdalene Petersne MD Dysplastic nevi (Primary Dx); Dysplastic nevus of skin 01/01/2025 1:15 PM EDT Consult [address] [address] Magdalene Petersen MD Dysplastic nevi (Primary Dx) from Last 3 Months Surgical History Surgery Date Site/Laterality Comments WISDOM TOOTH EXTRACTION PROCEDURE: HISTORICAL WISDOM TEETH EXTRACTION OTHER SURGICAL HISTORY PROCEDURE: HISTORY OTHER; COMMENT: nasal for deviated septum MOLE REMOVAL PROCEDURE: HISTORICAL MOLE (REMOVAL OF); COMMENT: Dysplastic nevus 04/23 right shoulder (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) 08/20 back & left thigh (moderate atypia) 02/16 back (severe atypia) Medical History Medical History Date Comments Low back pain 09/10/2011 DX:Low back pain Left varicocele 05/25/2013 DX:Left varicoce le; COMMENT: Noted by ultrasound 2013 Sacroiliitis (CMS/HCC V24) 08/13/2014 DX:Sa croiliitis (HCC); COMMENT: July 2014 History of dysplastic nevus 02/20/2014 DX:H istory of dysplastic nevus; COMMENT: Dysplastic nevus 04/23 right shoulder (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) 08/20 back & left thigh (moderate atypia) 02/16 back (severe atypia) Family History Medical History Relation Name Comments Arthritis Father Arthritis Paternal Grandfather Arthritis Paternal Grandmother Relation Name Status Comments Brother Alive Father Alive dm cholest bp h eart Mother Alive Paternal Grandfather Paternal Grandmother Sister Alive Social History Tobacco Use Types Packs/Day Years Used Date Smoking Tobacco: Never Smokeless Tobacco: Never Alcohol Use Standard Drinks/Week Comments Not Asked 0 (1 standard drink = 0.6 oz pur e alcohol) Sex and Gender Information Value Date Recorded Sex Assigned at Not on file Legal Sex Male 7:45 PM EST Gender Identity Not on file Sexual Orientation Not on file Obstetrics History Last Filed Vital Signs Vital Sign Reading Time Taken Comments Blood Pressure 134/81 02/03/2025 2:59 PM EDT Pulse 87 02/03/2025 2:59 PM EDT Temperature 36.6 C (97.8 F) 02/03/2025 2:59 PM EDT Respiratory Rate - - Oxygen Saturation - - Inhaled Oxygen Concentration - - Weight 113 kg (249 lb) 02/03/2025 2:59 PM EDT Height 185.4 cm (6' 1 ) 02/03/2025 2:59 PM EDT Body Mass Index 32.85 02/03/2025 2:59 PM EDT Plan of Treatment Health Maintenance Due Date Last Done Comments Hepatitis B Vaccines (1 of 3 - 19+ 3-dose series) 2000 HPV Vaccines (1 - 3-dose SCD M series) 2008 DTaP,Tdap,and Td Vaccines (2 - Td or Tdap) 11/18/2018 11/18/2008 Cholesterol Screening (Lipid Panel) 12/03/2023 HIV Screening 12/03/2023 Hepatitis C Screening 12/03/2023 Social Influencers of Health Screening 12/03/2023 Depression Screening 05/06/2024 COVID-19 Vaccine ( - 2025-2 6 season) 2025 10/14/2020, 09/23/2020 Influenza Vaccine (#1) 2025 01/30/2010 RSV Immunization Adult Patients (1 - 1-dose 75+ series) 2056 HIB Vaccines Aged Out No longer eligi ble based on patient's age to complete this topic Hepatitis A Vaccines Aged Out No long er eligible based on patient's age to complete this topic IPV Vaccines Aged Out No longer eligi ble based on patient's age to complete this topic MMR Vaccines Aged Out No longer eligi ble based on patient's age to complete this topic Meningococcal ACWY Vaccine Aged Out N o longer eligible based on patient's age to complete this topic Meningococcal B Vaccine Aged Out No l onger eligible based on patient's age to complete this topic Pneumococcal Vaccine: Pediatrics (0 to 5 Years) and At-Risk Patients (6 to 49 Years) Aged Out No longer eligible b ased on patient's age to complete this topic RSV Immunization Patients Under 20 months Aged Out No longer eligible b ased on patient's age to complete this topic Varicella Vaccines Aged Out No longer eligible based on patient's age to complete this topic Procedures Procedure Name Priority Date/Time Associated Diagnosis Comments TISSUE EXAM Routine 01/19/2025 3:46 PM EDT Dysplastic nevi from Last 3 Months Results * Tissue exam (01/19/2025 3:46 PM EDT) Final Diagnosis A. Skin, Flank, Right-excision: -FOCAL RESIDUAL JUNCTIONAL COMPONENT OF A MELANOCYTIC NEVUS, ASSOCIATED WITH BIOPSY SITE SCAR -Margins negative B. Skin, Back, Upper-excision: -FOCAL RESIDUAL COMPOUND MELANOCYTIC NEVUS, ASSOCIATED WITH BIOPSY SITE SCAR -Margins negative 01/21/2025 11:10 AM EDT [facility] Clinical Information Dysplastic nevi long stitch lateral Short stitch superior 01/21/2025 11:10 AM EDT [facility] Gross Description A. Flank, Right, : Labeled flank R . Received in formalin is a 2.9 x 0.9 cm oriented bernard-white skin ellipse excised to a depth of 1.2 cm. There is a short suture on one edge designating superior, and a long suture on one tip designating lateral per the requisition. The epidermis displays a 1.2 x 0.6 cm centrally scarred peripherally bernard-brown lesion, located 0.1 cm from the inferior margin. The superior margin is inked blue, inferior black, medial epidermis green. The specimen is serially sectioned and entirely submitted as follows: 1, en face medial and lateral tips (medial epidermis inked green), two pieces 2-5, sequential transverse cross-sections from medial to lateral, two pieces each. B. Back, Upper, : Labeled back U . Received in formalin is a 3.6 x 1.4 cm oriented bernard-white skin ellipse excised to depth of 1.2 cm. There is a short suture on one edge designating superior, and a long suture on one tip designating lateral per the requisition. The epidermis displays a 0.9 x 0.6 cm purple-rivera well-healed scar, located 0.2 cm from the superior margin. The superior margin is inked green, inferior black. The epidermis of the medial tip is inked blue. The specimen is serially sectioned and entirely submitted as follows: 1, en face medial and lateral tips (medial epidermis inked green), two pieces 2-6, sequential cross-sections from medial to lateral, two pieces each. FREYA 01/21/2025 11:10 AM EDT [facility] Disclaimer Unless otherwise specified, all tissue is 10% NB formalin fixed and paraffin embedded. 01/21/2025 11:10 AM EDT [facility] Tissue Structure of upper back / Unknown Non-blood Collection / Unknown 01/19/2025 3:46 PM EDT 01/19/2025 4:00 PM EDT Comment:Long stitch lateralS hort stitch superior Tissue specimen (specimen) Structure of upper back / Unknown 01/19/2025 3:46 PM EDT 01/19/2025 4:00 PM EDT Comment:Long stitch lateralS hort stitch superior Magdalene Petersen MD LAB PATHOLOGY ORDERABLE S Final Result [facility] [address] [place] [address], from Last [address] [facility] Care Teams Immigration Judge Relationship Specialty Start Date End Date Carmelina Lerner MD [address] [place] [address] PCP - General 07/05/23
== END 2025-03-02 15:21 | disposition home or self-care (01) ==
LOC: HO.HMCC 14:43
PROVIDERS: PCP Internal Medicine; Visit Provider Internal Medicine
DX: R19.7 Diarrhea, unspecified (principal); M25.512 Pain in left shoulder

== ENCOUNTER → 2025-03-02 15:06 | Outpatient (BNV) | payer BC, SELFPAY | PROVIDERS: PCP Internal Medicine; Visit Provider Radiology Diagnostic Radiology | DX: M25.512 Pain in left shoulder (principal) | CPT/HCPCS: 73030 ==

== ENCOUNTER 2025-03-03 07:08 | Outpatient (REF) | payer BC, SELFPAY ==
--- OUTSIDE RECORDS SUMMARY | 2025-03-03 09:48 | XMS_ITS | Patient Health Record ---
Author Organization [facility] Address [address] [place] [address] Care Team Providers Care Angio Technologist Name Role Phone Carmelina Lerner MD Primary Care Provider Unavaila fredi Black, [place]uyita Unavailable [phone] Allergies No Known Allergies Reason For Referral [...] W/U Status Risk Notes Problem Verruca plantaris (40956387) Verruca Plantaris (078.19) Active confirmed Problem Neuralgia - Neuritis (729.2) Active confirmed Problem Hammer toe (992489768) Hammer toe (735.4) Active confirmed Problem Pain in limb (73865725) Pain in Limb (729.5) Active confirmed Plan Of Treatment Pending Test Test Name Order Date X ray : Foot, left 3V 02/04/2012 X ray : Foot, right 3V 02/04/2012 [id number] Destruction, -02/04/2012 [id number] Destruction, 05-1903/03/2012 [id number] Destruction, -04/14/2012 Insurance Providers Payer Name Payer Address Payer Phone Subscriber Number Group Number Insured Name Patient Relationship to Insured Coverage Start Date Coverage End Date [facility] All Others [address] [place] [address] [id number] Remberto Domínguez Self - patient is the insured Medical (General) History Medical History History ICD Code Numbness Kidney stones back, hip, knee pain Surgical History Surgery Date(Month/Year) nose 2009 back surgery 2016
--- OUTSIDE RECORDS SUMMARY | 2025-03-03 09:48 | XMS_ITS | Clinical Summary ---
Author Organization [address] Address [address] [place] [phone] Phone Care Team Providers Care Cooling Room Attendant Name Role Phone Carmelina Lerner MD Primary Care Provider [phone] Allergies No known active allergies Medications No known medications Encounters Date Type Department Care Team Description 02/03/2025 2:45 PM EDT Office Visit Bariatric Surgery [address] [address] Magdalene Petersen MD Hx of atypical nevus (Primary Dx) 01/19/2025 3:15 PM EDT Procedure visit [address] [address] Magdalene Petersen MD Dysplastic nevi (Primary Dx); Dysplastic nevus of skin 01/01/2025 1:15 PM EDT Consult [address] [address] Magdalene Petersen MD Dysplastic nevi [...] SCAR -Margins negative 01/21/2025 11:10 AM EDT [facility] Clinical Information Dysplastic nevi long stitch lateral Short stitch superior 01/21/2025 11:[address] [facility] Gross Description A. Flank, Right, : [...] pieces each. FREYA 01/21/2025 11:10 AM EDT [facility] Disclaimer Unless otherwise specified, all tissue is 10% NB formalin fixed and paraffin embedded. 01/21/2025 11:10 AM EDT [facility] Tissue Structure of upper back / Unknown Non-blood Collection / Unknown 01/19/2025 3:46 PM EDT 01/19/2025 4:00 PM EDT Comment:Long stitch lateralS hort stitch superior Tissue specimen (specimen) Structure of upper back / Unknown 01/19/2025 3:46 PM EDT 01/19/2025 4:00 PM EDT Comment:Long stitch lateralS hort stitch superior Magdalene Petersen MD LAB PATHOLOGY ORDERABLE S Final Result [facility] [address] [place] [address], from Last 3 Months Insurance [facility] Care Teams Cooling Room Attendant Relationship Specialty Start Date End Date Carmelina Lerner MD [address] [place] [address] PCP - General 07/05/23
[2025-03-03 12:52] LABS: E. coli EAEC Not Detected (Not Detect.); E. coli EPEC Not Detected (Not Detect.); E. coli ETEC Not Detected (Not Detect.); E. coli STEC Not Detected (Not Detect.); Shigella sp./EIEC Not Detected (Not Detect.)
== END 2025-03-03 07:09 | disposition home or self-care (01) ==
LOC: HO.HMGCLNP 07:08
PROVIDERS: PCP Internal Medicine; Visit Provider Internal Medicine
DX: R19.7 Diarrhea, unspecified (principal)
CPT/HCPCS: 87507

== ENCOUNTER 2025-05-05 13:01 | Outpatient (REF) | payer BC, SELFPAY ==
--- NOTE | ~2025-05-05 | XR_ITS ---
EXAMINATION: XR CHEST 2 VIEWS HISTORY: R05.9 - Cough, unspecified COMPARISON: Comparison is made with the prior examination dated 03/03/2018. FINDINGS: PA and lateral views of the chest are submitted. There is scarring in the lingula. The lungs are otherwise clear. There is no pleural effusion, pneumothorax, or pulmonary vascular congestion. The heart is normal in size. There is degenerative disc disease of the spine. XR/XR chest 2V IMPRESSION: No acute cardiopulmonary abnormality. Electronically signed by: Homero Hardin MD 05/05/2025 01:17 PM [facility]
--- OUTSIDE RECORDS SUMMARY | 2025-05-05 09:30 | XMS_ITS | Encounter Summary ---
Author Organization [facility] Address [address] [place] [address] Care Team Providers Care Seismic Computer Name Role Phone Carmelina Lerner MD Primary Care Provider [phone] Reason for Visit * Reason Comments Follow-up 2 week follow up Encounter Details Date Type Department Care Team ([facility] st Contact Info) Description 05/05/2025 9:30 AM EST Office Visit Bariatric Surgery - [address] [place] [address] Magdalene Petersen MD [address] [place] [phone] Hx of dysplastic nevus (Primary Dx) Social History Tobacco Use Types Packs/Day Years Used Date Smoking Tobacco: Never Smokeless Tobacco: Never Alcohol Use Standard Drinks/Week Comments Not Asked 0 (1 standard drink = 0.6 oz pur e alcohol) Sex and Gender Information Value Date Recorded Sex Assigned at Not on file Legal Sex Male 7:45 PM EST Gender Identity Not on file Sexual Orientation Not on file documented as of this encounter Last Filed Vital Signs Vital Sign Reading Time Taken Comments Blood Pressure 125/77 05/05/2025 9:04 AM EST Pulse 120 05/05/2025 9:04 AM EST Temperature 36.9 C (98.4 F) 05/05/2025 9:04 AM EST Respiratory Rate - - Oxygen Saturation - - Inhaled Oxygen Concentration - - Weight 114 kg (252 lb) 05/05/2025 9:04 AM EST Height 185.4 cm (6' 1 ) 05/05/2025 9:04 AM EST Body Mass Index 33.25 05/05/2025 9:04 AM EST documented in this encounter Progress Notes * Magdalene Petersen MD - 05/05/2025 9:30 AM EST Remberto is s/p excision of dysplastic nevus of back on 04/21/25. No major complaints Pathology: Skin, mid upper back, excision: Dysplastic compound nevus with mild cytological atypia Margins uninvolved Healing wound Exam: incision is c/d/I. Stitches removed. Well tolerated Plan: wound care discussed. Continue follow up with dermatology. documented in this encounter Plan of Treatment Not on file documented as of this encounter Visit Diagnoses Diagnosis Hx of dysplastic nevus- Primary documented in this encounter Care Teams Seismic Computer Relationship Specialty Start Date End Date Carmelina Lerner MD [address] [place] [phone] PCP - General 07/05/23 documented as of this encounter
--- OUTSIDE RECORDS SUMMARY | 2025-05-05 14:33 | XMS_ITS | Encounter Summary ---
Author Organization [facility] Address [address] [place] [address] Care Team Providers Care Jewelry Drilling Machine Operator Name Role Phone Carmelina Lerner MD Primary Care Provider [phone] Encounter Details Date Type Department Care Team ([facility] st Contact Info) Description 04/23/2025 Results Follow-Up Bariatric Surgery - [address] [place] [address] Magdalene Petersen MD [address] [place] [phone] Social History Tobacco Use Types Packs/Day Years [...] on file documented as of this encounter Plan of Treatment Not on file documented as of this encounter Visit Diagnoses Not on filedocumented in this encounter Care Teams Jewelry Drilling Machine Operator Relationship Specialty Start Date End Date Carmelina Lerner MD [address] [place] [phone] PCP - General 07/05/23 documented as of this encounter
--- OUTSIDE RECORDS SUMMARY | 2025-05-05 14:33 | XMS_ITS | Patient Health Record ---
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 Problem Neuralgia - Neuritis (729.2) Active confirmed Problem Hammer toe (774391520) Hammer toe (735.4) Active confirmed Problem Pain in limb (58554143) Pain in Limb (729.5) Active confirmed Plan Of Treatment Pending Test Test Name Order Date X ray : Foot, left 3V 02/04/2012 X ray : Foot, right 3V 02/04/2012 [id number] Destruction, -02/04/2012 [id number]-Vtid Destruction, 05-1903/03/2012 [id number]-Qiat Destruction, 05-1904/14/2012 Next Appt Details Provider Name:Chuyita Mcclain Chi , 06/02/2025 02:00:00 PM, [address] [facility], [place], [address], Insurance Providers Payer Name Payer Address Payer Phone Subscriber Number Group Number Insured Name Patient Relationship to Insured Coverage Start Date Coverage End Date [facility] [employer] Others [address] [place] [address] [phone] [id number] Remberto Domínguez Self - patient is the insured Medical (General) History Medical History History ICD Code Numbness Kidney stones back, hip, knee pain Surgical History Surgery Date(Month/Year) nose 2009 back surgery 2016
--- OUTSIDE RECORDS SUMMARY | 2025-05-05 14:33 | XMS_ITS | Clinical Summary ---
Author Organization [facility] Address [address] [place] [phone] Phone Care Team Providers Care Rn Transfer Name Role Phone Carmelina Lerner MD Primary Care Provider [phone] Allergies No known active allergies Medications AZELASTINE-FLUTI CASONE NASL 1 spray. 06/15/2021 Active Encounters Date Type Department Care Team Description 05/05/2025 9:30 AM EST Office Visit [address] [phone] Magdalene Petersen MD Hx of dysplastic nevus (Primary Dx) 04/23/2025 Results Follow-Up [address] [address] Magdalene Petersen MD 04/21/2025 2:45 PM EST Procedure visit [address] [phone] Magdalene Petersen MD Dysplastic nevi (Primary Dx) 04/14/2025 4:00 PM EST Office Visit [address] [phone] Magdalene Petersen MD Dysplastic nevi (Primary Dx) 02/03/2025 2:45 PM EDT Office Visit [address] [phone] Magdalene Petersen MD Hx of atypical nevus (Primary Dx) from Last 3 Months Surgical [...] 2013 Sacroiliitis (CMS/HCC V24) 08/13/2014 DX:Sa croiliitis ([facility]); COMMENT: July 2014 History of dysplastic nevus [...] on file Sexual Orientation Not on file Last Filed Vital Signs Vital Sign Reading [...] Mass Index 33.25 05/05/2025 9:04 AM EST Plan of Treatment Health Maintenance Due Date Last Done Comments Hepatitis B Vaccines (1 of 3 - 19+ 3-dose series) 2000 HPV Vaccines (1 - 3-dose SCD M series) 2008 Cholesterol Screening (Lipid Panel) 12/03/2023 HIV Screening 12/03/2023 Hepatitis C Screening 12/03/2023 Social Influencers of Health Screening 12/03/2023 Depression Screening 05/06/2024 COVID-19 Vaccine (3 - 2024-2 6 season) 2025 10/14/2020, 09/23/2020 Influenza Vaccine (#1) 2025 01/30/2010 DTaP,Tdap,and Td Vaccines (3 - Td or Tdap) 06/10/2028 06/10/2018, 11/18/2008 RSV Immunization Adult Patients (1 - 1-dose [...] Date/Time Associated Diagnosis Comments TISSUE EXAM Routine 04/21/2025 3:09 PM EST Dysplastic nevi from Last 3 Months Results * Tissue exam (04/21/2025 3:09 PM EST) Final Diagnosis Skin, mid upper back, excision: Dysplastic compound nevus with mild cytological atypia Margins uninvolved Healing wound 04/23/2025 12:30 PM EST [facility] at 1230 EST Clinical Information Dysplastic Nevus, mid-upper back D23.9 Short stitch superior Long stitch lateral 04/23/2025 12:30 PM EST [facility] Gross Description A. Back, Upper, dysplatic nevus mid-upper bacl: Labeled back U . Received in formalin is a 2.7 x 1.1 cm oriented bernard-white skin ellipse excised to a depth of 0.8 cm. There is a short suture on one edge designating superior, and a long suture on one tip designating lateral per the requisition. The epidermis displays a 0.7 x 0.5 cm ill-defined faint pink-white well-healed scar, located 0.1 cm from the superior and inferior margin. The superior margin is inked blue, inferior black, lateral tip epidermis green. The specimen is sectioned in a cruciate manner. Senior Tax Accountant sections, to include the entirety of the scar, are submitted as follows: 1, cruciate medial and lateral tips (lateral epidermis inked green), two pieces 2 and 3, sequential cross-sections from lateral to medial, two pieces each FREYA 04/23/2025 12:30 PM EST [facility] Disclaimer Unless otherwise specified, all tissue is 10% NB formalin fixed and paraffin embedded. 04/23/2025 12:30 PM EST [facility] Tissue Structure of upper back / Unknown Non-blood Collection / Unknown 04/21/2025 3:09 PM EST 04/21/2025 3:27 PM EST Comment:dysplastic Nevus, mi d-upper backShort stitch superiorLong stitch lateral us Magdalene Petersen MD LAB PATHOLOGY ORDERABLE S Final Result [facility] [address] [place] [address], from Last 3 Months Insurance [facility] Care Teams Rn Transfer Relationship Specialty Start Date End Date Carmelina Lerner MD [address] [place] [address] PCP - General 07/05/23
== END 2025-05-05 13:02 | disposition home or self-care (01) ==
LOC: HO.HMGCX 13:01
PROVIDERS: PCP Internal Medicine; Visit Provider Internal Medicine
DX: R05.9 Cough, unspecified (principal)
CPT/HCPCS: 71046

== ENCOUNTER → 2025-05-05 13:04 | Outpatient (BNV) | payer BC, SELFPAY | PROVIDERS: PCP Internal Medicine; Visit Provider Radiology Diagnostic Radiology | DX: R05.9 Cough, unspecified (principal) | CPT/HCPCS: 71046 ==